=== PATIENT | female | born 1940 | race Caucasian/White ===

== ENCOUNTER 2021-04-14 14:20 | Emergency (ER) | payer MEDICARE, OTHER ==
[~2021-04-14] VITALS: Ht 152.4 cm; Wt 40.8 kg
[2021-04-14] MEDS ORDERED: SYNTHROID (14:26)
[2021-04-14] MEDS ORDERED: IV NORMAL SALINE 1000 ML BAG IV ONE ×2 (14:30→23:15)
[2021-04-14 15:02] LABS: HEMATOCRIT 30.6 % (31.2-41.9); MEAN CORPUSCULAR HEMOGLOBIN 27.7 uug (24.7-32.8); MEAN CORPUSCULAR VOLUME 83.1 fL (75.5-95.3); PLATELET COUNT (AUTO) 258 K/uL (179-408)
[2021-04-14 15:12] LABS: BILIRUBIN,TOTAL 0.7 mg/dL (0.2-1.0); CREATININE 0.6 mg/dL (0.6-1.3); POTASSIUM 3.9 mmol/L (3.5-5.1); TOTAL PROTEIN, SERUM 6.6 g/dL (6.4-8.2)
[2021-04-14] MEDS ORDERED: VANCOMYCIN 1G/D5W 200 ML PIGGYBACK IV ONE (15:30)
[2021-04-14] MEDS ORDERED: CEFTRIAXONE 1 G in IV DEXTROSE 5% 50 ML IV ONE (15:30)
[2021-04-14] MEDS ORDERED: CEFTRIAXONE /D5W 50ML IVPB **ER PYXIS IV ONE (15:41)
[2021-04-14] MEDS ORDERED: VANCOMYCIN IV 200 ML ONE (15:41)
[2021-04-14 15:50] LABS: *BILIRUBIN,URIN NEGATIVE (NEGATIVE); *BLOOD, URINE 1+ (NEGATIVE); *CLARITY,URINE SLIGHTLY CLOUDY (CLEAR); *COLOR,URINE YELLOW (YELLOW); *KETONES,URINE NEGATIVE (NEGATIVE); *UROBILINOGEN,URINE 0.2 E.U./dl (NORMAL); LEUKOCYTE ESTERASE ,URINE 3+ (NEGATIVE); NITRITE, URINE POSITIVE (NEGATIVE); UGLUCOSE NEGATIVE (NEGATIVE)
[2021-04-14 16:14] LABS: BACTERIA,URINE MODERATE /HPF (NONE SEEN); SQUAMOUS EPITHELIAL CELL,UR MODERATE /HPF (NONE SEEN); WBC,URINE 80-100 /HPF (0-3)
--- NOTE | 2021-04-14 17:34 | NUR ---
[facility] CALLED TO READ @[phone]
--- NOTE | 2021-04-14 18:01 | NUR ---
[facility] who will have Toney HOLLIS to call back.
--- NOTE | 2021-04-14 18:12 | NUR ---
DR. RODRIGUEZ FROM [facility] CALLED AND TALKED TO GHAZALA HOLLIS.
--- NOTE | 2021-04-14 19:05 | NUR ---
RECIEVED REPORT FROM HAMLET/LOWELL.
[2021-04-14] MEDS ORDERED: HYDROMORPHONE 1 MG/1 ML DISP.SYRIN IV ONE (19:30)
[2021-04-14] MEDS ORDERED: HYDROMORPHONE 1 MG/1 ML DISP.SYRIN ONE (19:37)
--- NOTE | 2021-04-14 20:37 | NUR ---
PT NOTED TO BE RESTING, EYES CLOSED, BREATHING EVEN AND UNLABORED. DAUGHTER AT BEDSIDE.
--- NOTE | 2021-04-14 21:19 | NUR ---
CALLED [facility] FOR ANY UPDATES, SPOKE WITH BANDAR "WE ARE STILL WAITING ON A ROOM FOR [facility]".
--- NOTE | 2021-04-14 21:56 | NUR ---
[facility] Patient [facility] be going to [facility] room 5116 bed B. Call for report number is . Accepting MD is Marjorie Navarrete ambulance ETA pick is [phone].
--- NOTE | 2021-04-14 22:54 | NUR ---
GAVE REPORT TO VANNA AUGUSTINE RN.
--- NOTE | 2021-04-14 23:01 | NUR ---
[facility]N UNIT 133 AT BEDSIDE TO TRANSPORT PT TO [facility].
--- NOTE | 2021-04-14 23:55 | NUR ---
Patient Tranfers to outside Facility Physician:DR. BROWN Location: [facility], ROOM 5116 BED B
== END 2021-04-15 00:04 | disposition short-term general hospital (02) ==
LOC: ER 14:20
DX: A41.9 Sepsis, unspecified organism (principal); N39.0 Urinary tract infection, site not specified; R65.20 Severe sepsis without septic shock; E87.1 Hypo-osmolality and hyponatremia; R22.2 Localized swelling, mass and lump, trunk; Z20.822 Contact with and (suspected) exposure to COVID-19; E87.8 Other disorders of electrolyte and fluid balance, not elsewhere classified; R79.1 Abnormal coagulation profile; E03.9 Hypothyroidism, unspecified; C7B.8 Other secondary neuroendocrine tumors; J90 Pleural effusion, not elsewhere classified; I31.3 Pericardial effusion (noninflammatory)
CPT/HCPCS: 36415; 71045; 71250; 76937; 80053; 81001; 82248; 83605 ×2; 83880; 84145; 84484; 85025; 85730; 86850; 86900; 86901; 87040 ×2; 87077; 87086; 87186; 87426; 93005; 96361; 96365 ×2; 96366; 96375; 99291; J0696; J1170; J3370; 70030-TC; A4663; C1758; J7030